=== PATIENT | male | born 1975 | race African-American/Black ===

== ENCOUNTER 2017-11-09 02:00 | Emergency (ER) | payer BC ==
[~2017-11-09] VITALS: Ht 180.3 cm; Wt 95.4 kg
[2017-11-09 02:19] VITALS: BP 140/79
== END 2017-11-09 04:48 | disposition home or self-care (01) ==
LOC: ER 02:00
DX: S60.562A Insect bite (nonvenomous) of left hand, initial encounter (principal); F17.200 Nicotine dependence, unspecified, uncomplicated; F12.10 Cannabis abuse, uncomplicated; W57.XXXA Bitten or stung by nonvenomous insect and other nonvenomous arthropods, initial encounter; Y93.89 Activity, other specified; Y92.89 Other specified places as the place of occurrence of the external cause; Y99.8 Other external cause status; Z88.0 Allergy status to penicillin; Z91.041 Radiographic dye allergy status; Z88.6 Allergy status to analgesic agent
CPT/HCPCS: 99283